=== PATIENT | female | born 1940 | race Hispanic/Latino ===

== ENCOUNTER 2017-01-27 09:49 | Outpatient (CLI) | payer MEDICARE ==
--- NOTE | 2017-01-27 13:47 | Cat Scan Report ---
CT CHEST, ABDOMEN AND PELVIS WITHOUT CONTRAST: 01/27/17 09:49:00 CLINICAL: Weight loss. TECHNIQUE: Volumetric acquisition and 1.25 millimeter scan reconstructions without contrast. Oral contrast wasnot given. FINDINGS: Chest: A soft tissue mass in the right lung base has heterogeneous density and a lobular contour. It measures 9.0 cm transverse dimension by 8.8 cm AP dimension by 5.3 cm craniocaudal dimension. The mass is contiguous to the pleura and there is a small right pleural effusion. No endobronchial mass is identified.The lungs are otherwise clear. There is moderate bilateral apical pleural thickening, greater on the right than the left. Some pleural calcification in the apices. Mild left pleural thickening in the left lung base. No hilar lymphadenopathy. There is a small volume of mediastinal fluid and a questionable enlarged AP window lymph node measured 1.4 x 0.9 cm. No other lymph nodes are identified. A left paratracheal mass in the superior mediastinum measures 2.1 x 2.1 cm in my arise from the left thyroid lobe. The thyroid is otherwise very small. The heart, aorta and pulmonary arteries are unremarkable. No subclavicular or axillary lymphadenopathy. Normal esophagus and trachea. Abdomen: Normal liver, bile ducts and gallbladder. The stomach is moderately distended with fluid and manner. There is fluid in the first portion of the duodenum. The pancreas is small with no calcifications or mass identified. The spleen is normal and measures 6.8 cm maximum. The adrenal glands and kidneys are normal. The renal collecting systems and ureters are nondilated. Mild calcification of the abdominal aorta and iliac arteries. The inferior vena cava is normal. No retroperitoneal lymphadenopathy.No ascites and no pneumoperitoneum. The small bowel and colon are unremarkable but the examination of the bowel is less than optimum without bowel contrast. An appendix is not identified. Surgical clips in the right lower quadrant and a calcification at the base of the cecum suggest that there has been an appendectomy. Pelvis: Normal urinary bladder and rectum.The uterus is normal size a few benign calcifications. Ovaries are not identified. Mild sigmoid diverticulosis but no diverticulitis. Bone windows demonstrate no suspicious bone lesion. IMPRESSION:1. A 9 cm soft tissue mass in the right lung base is suspicious for neoplasm. It may arise from the diaphragm or the pleura. It would be amenable to CT-guided percutaneous biopsy. 2. A questionable 1.4 x 0.9 cm AP window lymph node. 3. A 2.1 cm left paratracheal superior mediastinal mass may arise from the left thyroid lobe. 4. Bilateral benign apical pleural thickening is most likely granulomatous in origin. 5. Negative abdomen and pelvis but limited examination of the bowel without bowel contrast.
== END 2017-01-27 09:50 | disposition home or self-care (01) ==
LOC: SPVIMAG 09:49
DX: J90 Pleural effusion, not elsewhere classified (principal); K57.30 Diverticulosis of large intestine without perforation or abscess without bleeding; R63.4 Abnormal weight loss; R91.8 Other nonspecific abnormal finding of lung field; J94.8 Other specified pleural conditions; K31.89 Other diseases of stomach and duodenum; K86.89 Other specified diseases of pancreas; I70.0 Atherosclerosis of aorta; N85.8 Other specified noninflammatory disorders of uterus; E07.89 Other specified disorders of thyroid
CPT/HCPCS: 71250; 74176